=== PATIENT | female | born 1945 | race Caucasian/White ===

== ENCOUNTER → 2020-04-27 | Outpatient (CLI) | payer OTHER ==
[~2020-04-27] MED LIST: COVID-19 VACC, MRNA(MODERNA)/PF 100 MCG/0.5 ML VIAL IM ONE
== END ==
LOC: VACCPMC 17:00
DX: Z23 Encounter for immunization (principal); Z20.822 Contact with and (suspected) exposure to COVID-19

== ENCOUNTER → 2020-05-27 | Outpatient (CLI) | payer OTHER | END | DRG 951 | LOC: VACCPMC 10:39 | DX: Z23 Encounter for immunization (principal); Z20.822 Contact with and (suspected) exposure to COVID-19 | CPT/HCPCS: 0012A; 91301 ==

== ENCOUNTER 2021-06-24 08:22 | Observation (INO) | payer MEDICARE ==
[2021-06-22 13:57] LABS: BASOPHILS % 0.6 % (0.0-1.0); EOSINOPHILS % 0.6 % (0.0-6.0); HEMATOCRIT 38.7 % (34.2-44.1); HEMOGLOBIN 12.7 g/dL (12.0-16.0); LYMPHOCYTES # (AUTO) 1.8 (1.0-3.2); LYMPHOCYTES % 27.7 % (18.0-39.1); MEAN CORPUSCULAR HEMOGLOBIN 32.7 pg (28-32); MEAN CORPUSCULAR HGB CONC 32.8 g/dL (31-35); MEAN CORPUSCULAR VOLUME 99.7 fL (81-99); MONOCYTES # (AUTO) 0.6 (0.2-0.8); NEUTROPHILS # (AUTO) 4.1 (2.1-6.9); NEUTROPHILS % 61.9 % (38.7-80.0); PLATELET COUNT 219 x10e3/uL (140-360); RED BLOOD COUNT 3.88 x10e6/uL (3.6-5.1); RED CELL DISTRIBUTION WIDTH 12.2 % (11.7-14.4)
[2021-06-22 14:07] LABS: INR 0.9
[2021-06-22 14:08] LABS: PARTIAL THROMBOPLASTIN TIME 24.3 seconds (23.8-35.5)
[2021-06-22 14:14] LABS: ANION GAP 11.5 mmol/L (8-16); CALCIUM 9.7 mg/dL (8.4-10.2); CREATININE, SERUM 0.83 mg/dL (0.57-1.11); POTASSIUM 4.5 mmol/L (3.5-5.1)
[~2021-06-24] VITALS: Ht 170.2 cm; Wt 85.3 kg
[~2021-06-24 08:22] MED LIST changes: +BUSPIRONE HCL5 MG PO; -COVID-19 VACC, MRNA(MODERNA)/PF 100 MCG/0.5 ML VIAL IM ONE; +CYMBALTA30 MG PO; +DEXAMETHASONE SOD PHOS INJ 4 MG/ML SDV ONE; +EPHEDRINE SULFATE INJ 50 MG/ML VIAL ONE; +LIDOCAINE HCL 2% LOCAL INJ 5 ML SDV VIAL INJ ONE; +LIPITOR10 MG PO; +ONDANSETRON HCL INJ 2MG/ML 2ML 2 MG/ML VIAL ONE; +POVIDONE IODINE 0.05% 0.05 % ML PO ONE; +PROPOFOL IV EMULSION 10 MG/ML 20 ML VIAL ONE; +ROCURONIUM BROMIDE 10 MG/ML 5ML VIAL IV ONE; +SEVOFLURANE INHAL SOLN 250 ML PEN BTL ONE; +VIT B PO; +VIT B12 PO
[2021-06-24] MEDS ORDERED: SODIUM CHLORIDE 0.9% 50ML 100 ML ONE (09:10)
[2021-06-24] MEDS ORDERED: Vancomycin IV 1 GM VIAL ONE (09:32)
[2021-06-24] MEDS ORDERED: LIDOCAINE 1% W/EPINEPHRINE 20 ML VIAL ONE (09:32)
[2021-06-24] MEDS ORDERED: THROMBIN FOR SOLN 5,000 UNIT VIAL ONE (09:32)
[2021-06-24] MEDS ORDERED: OXYCODONE/ACETAMINOPHEN 5-325 1 EACH TABLET PO PRN (12:30)
[2021-06-24] MEDS ORDERED: CARISOPRODOL 350 MG TAB PO PRN (12:30)
[2021-06-24] MEDS ORDERED: MORPHINE SULFATE 5 MG/ML VIAL IM PRN (12:30)
[2021-06-24] MEDS ORDERED: ONDANSETRON HCL INJ 2MG/ML 2ML 2 MG/ML VIAL IV PRN (12:30)
[2021-06-24] MEDS ORDERED: HYDROMORPHONE 2MG/ML 2 MG/ML ML IV PRN (12:30)
[2021-06-24] MEDS ORDERED: CEPACOL SORE THROAT LOZENGES PO PRN (12:30)
[2021-06-24] MEDS ORDERED: PROMETHAZINE HCL (IM) 25 MG/ML VIAL IM PRN (12:30)
[2021-06-24] MEDS ORDERED: MAGNESIUM/ALUMINUM/SIMETHICONE 30 ML UDC PO PRN (12:30)
[2021-06-24] MEDS ORDERED: LACTATED RINGER'S 1,000 ML IV SCH (12:30)
[2021-06-24] MEDS ORDERED: ACETAMINOPHEN 325 MG TAB PO PRN (12:30)
[2021-06-24] MEDS ORDERED: HYDROCODON-ACE1 EA12 PO (12:31)
[2021-06-24] MEDS ORDERED: FENTANYL CITRATE/PF 100MCG/2 ML INJ ONE (12:47)
[2021-06-24 13:40] VITALS: BP 150/65
[2021-06-24 14:00] VITALS: BP 150/65
[2021-06-24 16:00] VITALS: BP 156/66
[2021-06-24] MEDS: BUSPIRONE HCL 5 MG TAB PO SCH (16:51)
[2021-06-24] MEDS: DULOXETINE HCL 30 MG DELAYED RELEASE PO SCH (16:51)
[2021-06-24] MEDS: Cefazolin 1 GM in SODIUM CHLORIDE 0.9% 50ML 50 ML IV SCH (17:53)
[2021-06-24 20:00] VITALS: BP 133/63
[2021-06-24] MEDS ORDERED: ZOLPIDEM TARTRATE 5 MG TAB PO PRN (21:00)
[2021-06-24] MEDS ORDERED: ATORVASTATIN 20 MG TAB PO SCH (21:00)
[2021-06-24 21:40] VITALS: BP 133/63
[2021-06-25] VITALS: BP 140/61
[2021-06-25] MEDS: Cefazolin 1 GM in SODIUM CHLORIDE 0.9% 50ML 50 ML IV SCH ×2 (02:00→09:00)
[2021-06-25 04:00] VITALS: BP 131/52
[2021-06-25 07:59] VITALS: BP 119/54
[2021-06-25] MEDS: DULOXETINE HCL 30 MG DELAYED RELEASE PO SCH (08:29)
[2021-06-25] MEDS: BUSPIRONE HCL 5 MG TAB PO SCH (08:29)
[2021-06-25 09:00] VITALS: BP 119/54
[2021-06-25] MEDS ORDERED: SODIUM CHLORIDE 0.9% 50ML 50 ML ONE (09:42)
== END 2021-06-25 10:24 | disposition home or self-care (01) ==
LOC: OR 08:22 → PACU V 12:41 → MED/SURG 13:31
PROVIDERS: ADMIT Neurological Surgery; ATTEND Neurological Surgery
DX: M50.120 Mid-cervical disc disorder, unspecified level (principal); Z20.822 Contact with and (suspected) exposure to COVID-19; Z01.818 Encounter for other preprocedural examination; K21.9 Gastro-esophageal reflux disease without esophagitis; E78.00 Pure hypercholesterolemia, unspecified
CPT/HCPCS: 20931; 22551; 22845; 36415; 71046; 76000; 80048; 85025; 85610; 85730; 86850; 86900; 88304; 88311; 93005; C1713 ×2; G0378 ×2; J0690 ×2; J1100; J2001; J2405; J2704; J3010; J3370; J7121; U0002

== ENCOUNTER → 2022-02-03 | Outpatient (CLI) | payer MEDICARE ==
[~2022-02-03] MED LIST changes: -DEXAMETHASONE SOD PHOS INJ 4 MG/ML SDV ONE; -EPHEDRINE SULFATE INJ 50 MG/ML VIAL ONE; +HYDROCODON-ACE1 EA12 PO; -LIDOCAINE HCL 2% LOCAL INJ 5 ML SDV VIAL INJ ONE; -ONDANSETRON HCL INJ 2MG/ML 2ML 2 MG/ML VIAL ONE; -POVIDONE IODINE 0.05% 0.05 % ML PO ONE; -PROPOFOL IV EMULSION 10 MG/ML 20 ML VIAL ONE; -ROCURONIUM BROMIDE 10 MG/ML 5ML VIAL IV ONE; -SEVOFLURANE INHAL SOLN 250 ML PEN BTL ONE
== END ==
LOC: RAD 14:12
PROVIDERS: ATTEND Neurological Surgery
DX: M50.20 Other cervical disc displacement, unspecified cervical region (principal); M43.22 Fusion of spine, cervical region
CPT/HCPCS: 72050